=== PATIENT | male | born 1985 | race Caucasian/White ===

== ENCOUNTER 2023-01-25 14:28 | Outpatient (REF) | payer MEDICAID, SELFPAY ==
[2023-01-25 16:46] LABS: Alanine Aminotransferase 18 U/L (0-40); Albumin Level 4.2 g/dL (3.5-5.0); Alkaline Phosphatase 69 U/L (39-117); Aspartate Amino Transferase 19 U/L (5-37); Bilirubin Direct 0.2 mg/dL (0.0-0.5); Bilirubin Total 0.4 mg/dL (0.0-1.0); Total Protein 7.6 g/dL (6.5-8.0)
[2023-01-26 13:55] LABS: Syphilis Screen Nonreactive (Nonreactive)
[2023-01-27 20:13] LABS: TS Negative Control Passed; TS Panel A 0; TS Panel B 2; TS Positive Control Passed; TSpotTB Negative (Negative)
[2023-01-28 04:03] LABS: HIV AB/AG Nonreactive (Nonreactive); HIV Num 1 0.05 S/CO (0.00-0.99); ~HepC Num1 0.05 S/CO (0.00-0.79); ~Hepatitis C Antibody Nonreactive (Nonreactive)
== END 2023-01-25 14:29 | disposition home or self-care (01) ==
LOC: HO.HHCL 14:28
PROVIDERS: Visit Provider Family Medicine
DX: F11.20 Opioid dependence, uncomplicated (principal)
CPT/HCPCS: 36415; 80076; 86481; 86780; 86803; 87389

== ENCOUNTER 2024-06-25 11:25 | Outpatient (REF) | payer MEDICAID, SELFPAY ==
[2024-06-25 13:49] LABS: Alanine Aminotransferase 19 U/L (0-40); Albumin Level 3.8 g/dL (3.5-5.0); Alkaline Phosphatase 53 U/L (39-117); Aspartate Amino Transferase 27 U/L (5-37); Bilirubin Direct 0.3 mg/dL (0.0-0.5); Bilirubin Total 0.6 mg/dL (0.0-1.0)
[2024-06-25 13:58] LABS: HIV AB/AG Nonreactive (Nonreactive); HIV Num 1 0.13 S/CO (0.00-0.99); ~HepC Num1 0.12 S/CO (0.00-0.79); ~Hepatitis C Antibody Nonreactive (Nonreactive)
[2024-06-25 13:59] LABS: Syphilis Screen Nonreactive (Nonreactive)
[2024-06-28 14:19] LABS: TS Negative Control Passed; TS Panel A 0; TS Panel B 0; TS Positive Control Passed; TSpotTB Negative (Negative)
== END 2024-06-25 11:26 | disposition home or self-care (01) ==
LOC: HO.HHCL 11:25
PROVIDERS: Visit Provider Family Medicine
DX: F11.20 Opioid dependence, uncomplicated (principal)
CPT/HCPCS: 36415; 80076; 86481; 86780; 86803; 87389

== ENCOUNTER 2024-07-17 19:14 | Emergency (ER) | payer MEDICAID, SELFPAY ==
[2024-07-17 19:20] VITALS: BP 122/80; PULSE 100; O2SAT 99; BMI 31.9
[2024-07-17 19:23] VITALS: BP 113/74; PULSE 90; RESP 19; TEMP 37.1; O2SAT 99
--- NOTE | 2024-07-17 21:57 | ED_ITS ---
HPI - General Adult General Chief complaint: Skin/Abscess/Foreign Body Stated complaint: rash on stomach after using suboxone yster Time Seen by Provider: 07/17/24 21:43 Source: patient, RN notes reviewed and old records reviewed Mode of arrival: EMS Limitations: no limitations History of Present Illness ED Provider: Page HPI narrative: 39-year-old male presents for evaluation of redness around his injection site. Patient reports that he received a Sublocade injection yesterday. This is his 2nd dose since restarting the medication last month. He had previously been on it as well without any issues. However when he got an injection yesterday he developed redness and itching around the injection site. He was given an allergy medication and a cream by the [facility]. He reports that the redness has decreased he denies any pain. He had no difficulty breathing, swallowing, no facial swelling and no rash and where outside of the injection site Related Data Allergies Allergy/AdvReac Type Severity Reaction Status Date / Time No Known Allergies Allergy Verified 07/17/24 19:23 [No Known Allergies*] Review of Systems 2 Constitutional: Constitutional: Denies body ache(s), Denies chills and Denies fever(s) Eyes: Eyes: Denies blurry vision Cardiovascular: Cardiovascular: Denies dyspnea Respiratory: Respiratory: Denies dyspnea Gastrointestinal: Gastrointestinal: Denies abdominal pain, Denies nausea and Denies vomiting Integumentary/Breasts: Skin/Breast: Reports pruritus, Reports erythema and Reports rash Psychiatric: Psychiatric: Denies anxiety PMFSH Social History Social History Advance Directives: No Advance Directives Information Provided: Yes Do you have a plan to hurt others: No Plan Physical Exam ED Vital Signs: Vital Signs - 24 hr 07/17/24 19:23 Temperature 98.8 F Pulse Rate 90 Respiratory Rate 19 Blood Pressure 113/74 Pulse Oximetry 99 Oxygen Delivery Method Room Air BMI result Body Mass Index 31.9 Const General: healthy appearing, comfortable, no acute distress, alert and awake Nutritional Appearance: well nourished Orientation/consciousness: patient oriented x3 HENMT Head: Yes normocephalic and Yes atraumatic Throat: Yes posterior oropharynx normal Eyes Eyelids: Yes eyelids normal Conjunctivae: conjunctivae normal Sclerae: sclerae normal Corneas: corneas normal Pupils: Equal, round and reactive pupils present EOM: EOMs intact bilaterally Neck Neck: Yes full ROM Resp Effort & Inspection: normal respiratory effort, able to speak in complete sentences and not labored GI Inspection: No distended Palpation (GI): Soft to palpation, not firm, nontender, no guarding and not rigid Skin Other: patient has mild erythema to the left lower abdomen, about 7 cm area in diameter. There is some induration at the injection site. General skin exam: elasticity normal Neuro General: patient oriented x3 Cranial nerves: Yes Equal, round and reactive pupils present and Yes Bilaterally intact EOM present Cognition (Neuro): normal cognition Extrem Other: Moving all extremities well without any obvious deformities Medical Decision Making Medical Decision Making MDM Narrative: 39-year-old male presents for evaluation of faint redness around his injection site of Sublocade that he received yesterday. He appears to have a mild localized reaction. This is unlikely to be an acute cellulitis as the injection was yesterday and the redness is already improving greatly. He has previously been on Sublocade injections in the past without issues. You may have a localized reaction to an additive in the injection. I advised the patient to continue with an antihistamine and he may wish to consider sublingual Sublocade if the reactions continue in the future Differential Diagnosis Differential Diagnoses: The differential diagnosis associated with the presentation includes allergic reaction Urticaria Injection site reaction Cellulitis less likely Discharge Plan Discharge Clinical Impression: Injection site reaction Patient Disposition: Home, Self-Care Instructions: General Allergic Reaction (ED) Additional Instructions: it is possible that you are having an allergic reaction to an additive in the Sublocade injection you may continue using the injection as long as you have no facial swelling, difficulty swallowing or breathing you may want to take an allergy medication prior to your next injection if you continue to have reactions, you may wish to switch to sublingual Suboxone you may also use warm compresses to the red area Print Language: Angolan
[2024-07-17 22:08] VITALS: BP 115/75; PULSE 94; RESP 16; TEMP 37.1; O2SAT 99
== END 2024-07-17 22:09 | disposition home or self-care (01) ==
PROVIDERS: Emergency Provider Emergency Medicine
DX: R21 Rash and other nonspecific skin eruption (principal)
CPT/HCPCS: 99283

== ENCOUNTER 2024-07-28 13:41 | Outpatient (REF) | payer MEDICAID, SELFPAY ==
--- OUTSIDE RECORDS SUMMARY | 2024-07-28 16:15 | XMS_ITS | Encounter Summary ---
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 Role Phone Unavailable Primary Care Provider Unavailabl e Reason for Visit * Reason Comments OBAT Encounter Details Date Type Department Care Team (Latest Contact Info) Description 07/28/2024 9:00 AM EDT Clinical Support [facility] [address] [place] [address] Tamra Coreas RN Uncomplicated opioid dependence (CMS/HCC) (Primary Dx) Social History Tobacco Use Types Packs/Day Years Used Date Smoking Tobacco: Never Assessed Depression Answer Date Recorded Patient Health Questionnaire-9 Score 25 06/25/2024 Patient Health Questionnaire-9 Score 25 06/25/2024 Last PHQ-9: Questionnaire Data Not on file 0 06/25/2024 Housing Stability Answer Date Recorded What is your housing situation today? I have rafael stephens 06/18/[address] you li ve. Do you have problems with any of the following? None of the above 06/18/2024 Food Insecurity Answer Date Recorded Within the past 12 months, y ou worried that your food would run out before you got money to buy more: Never True 06/18/2024 Within the past 12 months,th e food you bought just didn't last and you didn't have enough money to get more: Never True Transportation Answer Date Recorded In the past 12 months, has l ack of transportation kept you from medical appts, meetings, work or from getting things needed for daily living? No 06/18/2024 Utilities Answer Date Recorded In the past 12 months, has t he electric, gas, oil or water company threatened to shut off services in your home? No 06/18/2024 Depression Answer Date Recorded Patient Health Questionnaire-2 Score 6 06/25/2024 Internet Access Answer Date Recorded Internet Access Q1 No 06/18/2024 Internet Access Q2 Not on file 06/18/2024 Sex and Gender Information Value Date Recorded Sex Assigned at Male 02/05/2022 10:38 AM EDT Legal Sex Male 10:38 AM EDT Gender Identity Male 02/05/2022 10:38 AM EDT Sexual Orientation Straight 02/05/2022 10 :38 AM EDT documented as of this encounter Progress Notes * Tamra Coreas RN - 07/28/2024 9:00 AM EDT Patient here today for Opioid Dependence RV. Patient on Sublocade 300 mg, last injection 06/18/24, next due 07/16/24. Patient has been in the program for 4 weeks. Induction date: 06/18/24. LFTs due, ordered 06/2024. Patient actively enrolled in behavioral health services, connected to [employer]. AGNES MOTA reviewed by provider. Needs PCP appt, requested at intake. Smoking status 06/2024: 2 cigs/day. LAST VISIT 07/16/24 +bup, thc Keanu is here for OBAT visit and Sublocade injection today. Reports doing well. Has been going onjob interviews this week, and he is excited to work. Concerned about fingernail fungus. Has upcoming PCP appt 09/03. Gave him appt reminder. Sublocade reviewed. Pt verbalized understanding. Sublocade 300 mg given SQ LLQ abdomen. Pt tolerated injection, no adverse reactions noted. Advised pt to call RN with any questions or concerns. Next injection will be 100 mg. Plan: Sublocade reviewed. Recovery support, harm reduction (including Narcan), and behavioral health attendance reviewed. Appointment for 2 weeks given. Patient expressed understanding and agreement with continuing plan of care. TODAY 07/28/24 UTOX: +bup, thc Keanu presented today for OBAT RN IN PERSON VISIT for Opioid Use Disorder. He is alert and oriented. Speech clear, coherent and goal directed. Easily engaged and initiates conversation. 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 Living at a program thru [employer] for [email or web address] in [place]. No medical concerns. Doing well on sublocade. States his plan is to receive (2) more sublocade 100 mg injections and then stop the medication. Wants to continue coming to [facility], but does not wish to continue medication. Plan: Sublocade reviewed. Recovery support, harm reduction (including Narcan), and behavioral health attendance reviewed. Appointment for 2 weeks given. Patient expressed understanding and agreement with continuing plan of care. This information has been disclosed to you from records protected by federal confidentiality rules (42 CFR Part 2). The federal rules prohibit you from making any further disclosure of information inthis record that identifies a patient as having or having had a substance use disorder either directly, by reference to publicly available information, or through verification of such identification by another person unless further disclosure is expressly permitted by the written consent of the individual whose information is being disclosed or as otherwise permitted by (see2.3.1). The federal rules restrict any use of the information to investigate or prosecute with regard to a crime any patient with a substance use disorder, except as provided at 2.12??(5) and 2.65. documented in this encounter Miscellaneous Notes * Addendum Note - Terry Herrera MA - 07/28/2024 9:00 AM EDTAddended by: TERRY HERRERA on: 07/28/2024 11:45 AM Modules accepted: Orders documented in this encounter Plan of Treatment Upcoming Encounters Date Type Department Care Team (Late st Contact Info) Description 08/13/2024 2:00 PM EDT Office Visit [facility] [address] [place] [phone] Deanna Hopkins MD [address] [place] [phone] 09/03/2024 9:30 AM EDT Office Visit [facility] [address] [place] [phone] Nick Ch MD [address] [place] [address] Scheduled Orders Name Type Priority Associated Diagnoses Orde r Schedule Drug Toxicology Monitoring Marijuana Metabolite 20, with Confirmation, Urine Lab Routine Uncomplicated opioid dependence (CMS/HCC) Expected: 07/28/2024 (Approximate), Expires: 07/28/2025 documented as of this encounter Goals Goal Patient Goal Type Associated Problems Recent Progress Patient-Stated? 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, RN documented as of this encounter Procedures Procedure Name Priority Date/Time Associated Diagnosis Comments POCT BRUCE-14 URINE DRUG SCREEN Routine 07/28/2024 9:25 AM EDT Uncomplicated opioid dependence (CMS/HCC) documented in this encounter Results * POCT BRUCE-14 Urine Drug Screen (07/28/2024 9:25 AM EDT) THC Positive Cocaine Screen, Urine Negative Opiate Screen, Urine Negative Methamphetamine Screen Urine Negative Amphetamine Screen, Urine Negative Benzodiazepines Screen, Urine Negative Barbiturate Screen, Urine Negative Methadone Screen, Urine Negative Buprenophine Screen, Urine Positive TCA, Urine Negative MDMA Urine Negative ng/mL Oxycodone Screen, Urine Negative Phencyclidine (PCP), Urine Negative Fentanyl, Urine Negative Urine Urine specimen obtained by clean catch procedure / Unknown 07/28/2024 9:25 AM EDT Ion Hill MD POINT OF CARE TEST ENTER/EDIT ORDERABLES Final Result documented in this encounter Visit Diagnoses Diagnosis Uncomplicated opioid dependence (CMS/HCC)- Primary documented in this encounter Additional Health Concerns Assessment Noted Time PHQ-9 Depression Total Score: 25 025 12:47 PM EDT documented as of this encounter
--- OUTSIDE RECORDS SUMMARY | 2024-07-28 16:15 | XMS_ITS | Encounter Summary ---
Author Organization [employer] Address [address] [facility] [address] [place] [address] Care Team Providers Care Area Coordinator Name Role Phone Unavailable Primary Care Provider Unavailabl e Reason for Visit * Reason Comments RC Recovery Supports Encounter Details Date Type Department Care Team (Late st Contact Info) Description 07/24/2024 Patient Outreach [facility] [address] [place] [address] Kavon Zhu Recovery Supports Social History Tobacco Use Types Packs/Day Years [...] as of this encounter Progress Notes * Kavon Zhu - 07/24/2024 2:27 PM EDT I met with Keanu carson. Setting: in person at [facility] Recovery Wellness Goals worked on: Social Stability Action taken/next steps: Offered person centered recovery support, Attended alcohol and drug free activity, and Referred to housing resources Additional comments: Kavon Zhu documented in this encounter Plan of Treatment Upcoming Encounters Date Type Department Care Team (Late st Contact Info) Description 08/13/2024 2:00 PM EDT Office Visit [facility] [address] [place] [phone] Deanna Hopkins MD [address] [place] [address] 09/03/2024 9:30 AM EDT Office Visit [facility] [address] [place] [phone] Nick Ch MD [address] [place] [address] documented as of this encounter Goals Goal Patient Goal Type Associated Problems Recent Progress Patient-Stated? 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, RN documented as of this encounter Visit Diagnoses Not on filedocumented in this encounter Additional Health Concerns Assessment Noted Time PHQ-9 Depression Total Score: 25 025 12:47 PM EDT documented as of this encounter
--- OUTSIDE RECORDS SUMMARY | 2024-07-28 16:16 | XMS_ITS | Encounter Summary ---
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 Setting: in person at [facility] Recovery Wellness Goals worked on: Physical Health/Mental Health and Social Stability Action taken/next steps: Offered person centered recovery support and Attended alcohol and drug free activity Additional comments: Kavon Zhu documented in this encounter Plan of Treatment Upcoming Encounters Date Type Department Care Team (Late st Contact Info) Description 08/13/2024 2:00 PM EDT Office Visit [facility] [address] [place] [phone] Deanna Hopkins MD [address] [place] [address] 09/03/2024 9:30 AM EDT Office Visit [facility] [address] [place] [phone] Nick Ch MD [address] [place] [address] documented as of this encounter Goals Goal [...]
--- OUTSIDE RECORDS SUMMARY | 2024-07-28 16:16 | XMS_ITS | Encounter Summary ---
Author Organization [facility] Address [address] [facility] [address] [place] [address] Care Team Providers Care Supervisor White Sugar Name Role Phone Unavailable Primary Care Provider Unavailabl e Encounter Details Date Type Department Care Team (Late st Contact Info) Description 06/05/2024 Orders Only [facility] [address] [place] [phone] Krystal Torrez, IDRIS Opioid type dependence, continuous (CMS/HCC) Social History Tobacco Use Types Packs/Day Years Used Date Smoking Tobacco: Never Assessed Sex and Gender Information Value Date Recorded Sex Assigned at Male 02/05/2022 10:38 AM EDT Legal Sex Male 10:38 AM EDT Gender Identity Male 02/05/2022 10:38 AM EDT Sexual Orientation Straight 02/05/2022 10 :38 AM EDT documented as of this encounter Plan of Treatment Upcoming Encounters Date Type Department Care Team (Late st Contact Info) Description 08/13/2024 2:00 PM EDT Office Visit [facility] [address] [place] [phone] Deanna Hopkins MD [address] [place] [phone] 09/03/2024 9:30 AM EDT Office Visit [facility] [address] [place] [phone] Nick Ch MD [address] [place] [phone] documented as of this encounter Procedures Procedure Name Priority Date/Time Associated Diagnosis Comments SYPHILIS SCREEN Routine 06/25/2024 11:35 AM EDT Opioid type dependence, continuous (CMS/HCC) HEPATITIS C AB W/REFL TO HCV RNA, QN, PCR Routine 06/25/2024 11:35 AM EDT Opioid type dependence, continuous (CMS/HCC) HIV 1/2 ANTIGEN/ANTIBODY, FOURTH GENERATION W/RFL Routine 06/25/2024 11:35 AM EDT Opioid type dependence, continuous (CMS/HCC) HEPATIC FUNCTION PANEL Routine 06/25/2024 11:35 AM EDT Opioid type dependence, continuous (CMS/HCC) T-SPOT(R).TB Routine 06/25/2024 11:33 AM EDT Opioid type dependence, continuous (CMS/HCC) documented in this encounter Results * HIV-1/2 Antigen and Antibodies, Fourth Generation, with Reflexes (06/25/2024 11:35 AM EDT) [facility] HIV AB/AG Nonreactive Nonreactive [facility] Comment:HIV-1 p24 Ag and/or HIV-1/HIV-2 Ab not detected.A test result that is nonreactive does not exclude thepossibility of exposure to or infection with HIV-1 and/orHIV-2. Nonreactive results in this assay for individualswith prior exposure to HIV-1 and/or HIV-2 may be due toantigen and antibody levels that are below the limit ofdetection of this assay.The [employer] HIV Ag/Ab Combo assay result andsupplemental assay results should be interpreted inconjunction with the patient's clinical presentation,history and other laboratory results. If the results areinconsistent with clinical evidence, additional testing issuggested to confirm the result. 06/25/2024 11:3 5 AM EDT 06/25/2024 1:06 PM EDT us Deanna Hopkins MD LAB BLOOD ORDERABLES Final R esult [facility] [address] [place] [phone] * Hepatitis C Antibody with Reflex to HCV, RNA, Quantitative, Real-Time PCR (06/25/2024 11:35 AM EDT) Pathologist [facility] Hepatitis C Antibody Nonreactive Nonreactive [facility] Comment:Antibodies to HCV no t detected; does not exclude early acuteHCV infection. 06/25/2024 11:3 5 AM EDT 06/25/2024 1:06 PM EDT us Deanna Hopkins MD LAB BLOOD ORDERABLES Final R esult Performing Organization Address City/[facility]/ZIP Co de Phone Number [facility] [address] [place] [phone] * Syphilis Screen (06/25/2024 11:35 AM EDT) Pathologist [facility] Syphilis Screen Nonreactive Nonreactive [facility] 06/25/2024 11:3 5 AM EDT 06/25/2024 1:06 PM EDT Deanna Hopkins MD LAB BLOOD ORDERABLES Final R esult Performing Organization Address City/[facility] Co de Phone Number [facility] [address] [place] [phone] * Hepatic Function Panel (06/25/2024 11:35 AM EDT) Pathologist [facility] Bilirubin, Total 0.6 0.0 - 1.0 mg/dL [facility] Bilirubin, Direct 0.3 0.0 - 0.5 mg/dL [facility] Aspartate Amino Transferase 27 5 - 37 U/L [facility] Alanine Aminotransferase 19 0 - 40 U/L [facility] Total Protein 7.0 6.5 - 8.0 g/dL [facility] Albumin Level 3.8 3.5 - 5.0 g/dL [facility] Alkaline Phosphatase 53 39 - 117 U/L [facility] 06/25/2024 11:3 5 AM EDT 06/25/2024 1:06 PM EDT Deanna Hopkins MD LAB BLOOD ORDERABLES Final R esult [facility] [address] [place] [phone] * T-SPOT??.TB (06/25/2024 11:33 AM EDT) Pathologist [facility] T Spot TB Negative Negative [facility] Comment:A negative test resu lt does not exclude the possibilityof exposure to or infection with Mycobacteriumtuberculosis (M. tuberculosis). Patients with recentexposure to TB infected individuals exhibiting anegative T-SPOT.TB result should be considered forretesting within 6 weeks or if other relevant clinicalsymptoms indicate. Results from T-SPOT.TB testing mustbe used in conjunction with each individual'sepidemiological history, current medical status,and results of other diagnostic evaluations.The T-SPOT.TB test is qualitative and results arereported as positive, borderline, or negative, giventhat the test controls perform as expected. In linewith the Centers for Disease Control and Prevention's2010 recommendation to report quantitative measurementsalongside the qualitative result, the laboratoryprovides spot counts for informational purposes only.The T-SPOT.TB test should not be interpreted as aquantitative test. TS PANEL A 0 [facility] TS PANEL B 0 [facility] Negative Control Passed [facility] Positive Control Passed [facility] Comment:For additional infor mation, please refer [email or web address].[email or web address]/faq/FGL879(This link is being provided for informational/educational purposes only.)THIS TEST WAS PERFORMED AT:[id number] [place] [phone] KATE MD,PHD 06/25/2024 11:3 3 AM EDT 06/25/2024 1:06 PM EDT us Deanna Hopkins MD LAB BLOOD ORDERABLES Final R esult [facility] [address] [place] [phone] documented in this encounter Visit Diagnoses Diagnosis Opioid type dependence, continuous (CMS/HCC) Opioid type dependence, continuous documented in this encounter
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
--- OUTSIDE RECORDS SUMMARY | 2024-07-28 16:16 | XMS_ITS | Encounter Summary ---
Author Organization [employer] Address [address] [place] [address] Care Team Providers Care Key Maker Name Role Phone Unavailable Primary Care Provider Unavailabl e Encounter Details Date Type Department Care Team (Latest Contact Info) Description 07/28/2024 Travel Social History Tobacco Use Types Packs/Day Years [...] Description 08/13/2024 2:00 PM EDT Office Visit [facility] [address] [place] [phone] Deanna Hopkins MD [address] [place] [address] 09/03/2024 9:30 AM EDT Office Visit [facility] [address] [place] [phone] Nick Ch MD [address] [place] [address] [phone] documented as of this encounter Goals Goal Patient Goal Type Associated Problems Recent Progress Patient-Stated? 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
== END 2024-07-28 13:42 | disposition home or self-care (01) ==
LOC: HO.HHCLNP 13:41
PROVIDERS: Visit Provider Emergency Medicine
DX: F11.20 Opioid dependence, uncomplicated (principal)
CPT/HCPCS: 80307

== ENCOUNTER 2024-09-17 13:38 | Outpatient (REF) | payer MEDICAID, SELFPAY ==
[2024-09-18 08:15] LABS: Hepatitis A Antibody IgG REACTIVE (Nonreactive); ~Hepatitis A Antibody IgG 2.82 S/CO (0.00-0.99)
[2024-09-18 08:28] LABS: HBS Num1 203.91 mIU/mL (0-7.99); HBc Num1 0.08 S/CO (0.00-0.79); HBsAGNum1 0.35 S/CO (0.00-0.99); HIV AB/AG Nonreactive (Nonreactive); HIV Num 1 0.06 S/CO (0.00-0.99); Hepatitis B Core Antibody Nonreactive (Nonreactive); Hepatitis B Surface Antigen Negative (Negative); ~HepC Num1 0.09 S/CO (0.00-0.79); ~Hepatitis B Surface Antibody REACTIVE (Nonreactive); ~Hepatitis C Antibody Nonreactive (Nonreactive)
== END 2024-09-17 13:39 | disposition home or self-care (01) ==
LOC: HO.HHCL 13:38
PROVIDERS: Visit Provider Family Medicine
DX: F11.20 Opioid dependence, uncomplicated (principal)
CPT/HCPCS: 36415; 86704; 86706; 86708; 86803; 87340; 87389